=== PATIENT | male | born 1970 | race Caucasian/White ===

== ENCOUNTER 2023-05-29 20:22 | Emergency (ER) | payer BC ==
[~2023-05-29] VITALS: Ht 180.3 cm; Wt 106.2 kg
[2023-05-29] MEDS ORDERED: ONDANSETRON 4MG 2ML VIAL IV ONE (21:20)
[2023-05-29] MEDS ORDERED: MORPHINE 4 MG/ML 1ML VIAL IV ONE (21:20)
[2023-05-29 21:40] LABS: BASO % 0.3 % (0.0-1.0); EOS % 0.2 % (0.0-3.0); HEMATOCRIT 43.7 % (42.0-52.0); LYMPH # 1.3 10^3/uL (1.5-5.0); MEAN CORPUSCULAR HEMOGLOBIN 29.2 pg (27.0-33.0); MEAN CORPUSCULAR HGB CONC 34.3 g/dl (32.0-36.5); MEAN CORPUSCULAR VOLUME 85.2 fl (80.0-96.0); MONO # 0.9 10^3/uL (0.0-0.8); MONO % 6.6 % (2.0-8.0); NEUTROPHILS # 11.8 10^3/uL (1.5-8.5); NEUTROPHILS % 83.6 % (36.0-66.0); PLATELET COUNT, AUTOMATED 253 10^3/uL (150-450); RED BLOOD COUNT 5.13 10^6/uL (4.30-6.10); WHITE BLOOD COUNT 14.1 10^3/uL (4.0-10.0)
[2023-05-29 22:02] LABS: BLOOD UREA NITROGEN 18 MG/DL (9-23); CALCIUM LEVEL 10.2 MG/DL (8.5-10.1); CARBON DIOXIDE LEVEL 21 MMOL/L (20-31); CHLORIDE LEVEL 107 MMOL/L (98-107); CREATININE FOR GFR 0.97 MG/DL (0.70-1.30); GLOMERULAR FILTRATION RATE > 60.0 (>56); GLUCOSE, FASTING 112 MG/DL (60-100); POTASSIUM SERUM 4.2 MMOL/L (3.5-5.1); SODIUM LEVEL 140 MMOL/L (136-145)
[2023-05-29 22:03] LABS: C REACTIVE PROTEIN QUANTITATIV < 0.40 MG/DL (<1.0)
[2023-05-29 23:10] LABS: GC DNA AMPLIFICATION NEGATIVE (NEGATIVE)
[2023-05-29 23:23] LABS: ERYTHROCYTE SEDIMENTATION RATE 22 mm/hr (0-20)
[2023-05-29] MEDS ORDERED: NORCO 5/325MG TABLET (HOME DOSE PACK) PO ONE (23:50)
[2023-05-29] MEDS ORDERED: cefTRIAXone SOD 1 GM in D5W MINI-BAG PLUS 50 ML IV ONE (23:50)
[2023-05-29] MEDS ORDERED: CIPR-249 PO (23:56)
[2023-05-29] MEDS ORDERED: HYDR-3713 PO (23:56)
[2023-05-29] MEDS ORDERED: NAPR-837 PO (23:56)
[2023-05-30 00:28] VITALS: BP 125/69; TEMP 99; O2SAT 97
== END 2023-05-30 00:48 | disposition home or self-care (01) ==
LOC: M ED 20:22
DX: N45.3 Epididymo-orchitis (principal); Z79.2 Long term (current) use of antibiotics; Z79.899 Other long term (current) drug therapy
CPT/HCPCS: 76870; 80048; 81001; 83605; 85025; 85652; 86140; 87086; 87661; 87810; 87850; 93976; 96365; 96375; 99284; J0696; J2405